=== PATIENT | female | born 1960 | race Two or more races ===

== ENCOUNTER → 2016-09-14 | Outpatient (CLI) | payer MEDICAID | END | disposition home or self-care (01) | LOC: Rad HDHVI 13:32 | PROVIDERS: ATTEND Internal Medicine Cardiovascular Disease | DX: M48.02 Spinal stenosis, cervical region (principal); M51.37 Other intervertebral disc degeneration, lumbosacral region; M12.88 Other specific arthropathies, not elsewhere classified, other specified site; R20.0 Anesthesia of skin; Z98.1 Arthrodesis status | CPT/HCPCS: 72050; 72110 ==